=== PATIENT | male | born 1975 | race Two or more races ===

== ENCOUNTER 2020-10-19 22:31 | Emergency (ER) | payer SELFPAY ==
[~2020-10-19] VITALS: Ht 172.7 cm; Wt 95.3 kg
[2020-10-19 22:54] VITALS: BP 132/92
[2020-10-20] MEDS ORDERED: LIDOCAINE VISCOUS 2% 15ML UD PO ONE (01:00)
== END 2020-10-20 01:26 | disposition home or self-care (01) ==
LOC: ER 22:31
DX: S27.818A Other injury of esophagus (thoracic part), initial encounter (principal); X58.XXXA Exposure to other specified factors, initial encounter; Y93.89 Activity, other specified; Y92.89 Other specified places as the place of occurrence of the external cause; Y99.8 Other external cause status
CPT/HCPCS: 70490; 99284; J7030